=== PATIENT | male | born 1990 | race Caucasian/White ===

== ENCOUNTER 2016-12-18 10:45 | Emergency (ER) | payer BC ==
[~2016-12-18] VITALS: Ht 182.9 cm; Wt 85.0 kg
[2016-12-18 10:46] VITALS: BP 138/84; PULSE 98; RESP 16; TEMP 99.5; O2SAT 98
[2016-12-18] MEDS ORDERED: PENI500T PO (11:18)
--- NOTE | 2016-12-18 11:18 | PD ---
HPI Chief Complaint: Oral / Dental Pain or Problem Time Seen by Provider: 11:07 Travel History International Travel<30 days: No Contact w/Intl Traveler<30days: No Traveled to known affect area: No History of Present Illness HPI This is a 26-year-old male who presents to the emergency department with face swelling this been going on for 2 days, constant, moderate severity, associated with some pain along the lower part of his jaw on the left. He has felt a little bit feverish. He's had no trouble swallowing or breathing. PFSH Past Medical History Immunizations Current: Yes Social History Alcohol Use: Yes Tobacco Use: Yes Substance Use: No (patient/family deny) Allergies-Medications (Allergen,Severity, Reaction): Coded Allergies: Haldol (Verified Allergy, Severe, 06/16/10) No Known Allergies (Verified , 06/16/10) Reported Meds & Prescriptions Reported Meds & Active Scripts Active Review of Systems Except as stated in HPI: all other systems reviewed are Neg Physical Exam Narrative GENERAL:Well appearing, no acute distress SKIN: Focused skin assessment warm and dry. HEAD: Atraumatic. Normocephalic. EYES: Pupils equal and round. No injection or drainage. ENT: Moist mucous membranes. Posterior to the patient's last lower molar on the left there is a raised erythematous area that is expressing pus which I suspect is an abscess and may be an impacted wisdom tooth. He has swelling over the left maxilla and jaw. No submental or sublingual swelling or fullness NECK: Trachea midline. CARDIOVASCULAR: Regular rate and rhythm. No murmur appreciated. RESPIRATORY: Clear to auscultation. Breath sounds equal bilaterally. GASTROINTESTINAL: Abdomen soft, non-tender, nondistended. MUSCULOSKELETAL: No obvious deformities. NEUROLOGICAL: Awake and alert. No obvious cranial nerve deficits. Moving all extremities. PSYCHIATRIC: Appropriate mood and affect; insight and judgment normal. Data Data Last Documented VS Vital Signs Date Time Temp Pulse Resp B/P Pulse Ox O2 Delivery O2 Flow Rate FiO2 12/18/16 10:46 99.5 98 16 138/84 98 MDM Medical Decision Making Medical Screen Exam Complete: Yes Emergency Medical Condition: Yes Differential Diagnosis Dental abscess, Yehuda's angina, parotitis, sialoadenitis Narrative Course This is a 26-year-old male who presents to the emergency department with swelling of his left face. Along his lower mandible he has an area posteriorly which appears to be a dental abscess and I was able to express some pus from it. He think he requires referral to a dentist. He says he just got dental insurance so I asked him to call his insurance company today and find out what dentist can see him. He'll be started on antibiotics. He is not toxic appearing at this time and has no airway compromise. I think is appropriate for outpatient management. He was advised if he gets sicker, high fevers or is developing difficulty swallowing or breathing he should return to the emergency department. Diagnosis Primary Impression: Dental abscess Patient Instructions: General Instructions Additional Instructions: If you develop fever, increasing redness, warmth, or spreading of your infection , or severe pain return to the emergency department immediately as you may require antibiotics through your IV. Complete your course of antibiotics as prescribed. Follow up with a dentist as soon as possible. Med/Other Pt SpecificInfo: Prescription(s) given Scripts Penicillin V Potassium 500 Mg Izp301 Mg PO Q6H 7 Days Ref 0 Prov:Yissel Mayorga MD 12/18/16 Disposition: 01 DISCHARGE HOME Condition: Stable Yissel Mayorga MD Dec 18, 2016 11:18
[2016-12-18 11:31] VITALS: BP 121/78
== END 2016-12-18 11:46 | disposition home or self-care (01) ==
LOC: NEPD 10:45
DX: K04.7 Periapical abscess without sinus (principal); Z72.0 Tobacco use
CPT/HCPCS: 99283